=== PATIENT | female | born 1990 | race American Indian/Alaskan Native ===

== ENCOUNTER 2016-05-16 10:01 | Emergency (ER) | payer SELFPAY ==
--- NOTE | 2016-05-16 11:45 | Emergency Department Report ---
Chief Complaint: Abdominal Pain Stated Complaint: ABD PAIN/BLOOD IN STOOL Time Seen by Provider: 05/16/16 11:42 - HPI History of Present Illness: Patient here reported that she has lower abdominal pain on and off for 7 days. She is reporting that she had a loose and bloody stool to 348 hours which is now stopped. She says she is now constipated. She says she has not had a cycle for 9 days and if leg. Denies any vaginal bleeding or discharge. Denies any hemorrhoidal rectal pain. Denies any fever or chills or nausea vomiting today. Denies any urinary burning frequency or urgency. - ROS Review of Systems: All systems are negative unless stated in HPI above. - Exam Vital Signs: Vital Signs 05/16/16 10:58 Temperature 98 F Pulse Rate 85 Respiratory 18 Rate Blood Pressure 123/81 O2 Sat by Pulse 98 Oximetry Physical Exam: Gen: This is a 25-year-old female well-nourished well-developed nontoxic in appearance. CV: S1, S2. Regular rate and rhythm. Lungs:CTAB PSYCH:calm and relaxed GI: soft, NTTP in all quadrants. no gaurdinding or rebound tenderness. negative CVA tenderness. NL bowel sounds MSE screening note: Focused history and physical exam performed. Due to findings the following was ordered:see mdm ED Medical Decision Making - Medical Decision Making Medical decision making: Patient seen by provider in triage area. Appropriate protocol activated and patient to main ED to be seen by physician. ED Disposition for MSE Condition: Stable Instructions: Abdominal Pain (ED)
[2016-05-16 12:00] LABS: Basophils % (Auto) 0.4 % (0.0-1.8); Eosinophils % (Auto) 1.1 % (0.0-4.3); Hematocrit 40.9 % (30.3-42.9); Hemoglobin 13.3 gm/dl (10.1-14.3); Mean Corpuscular HGB Conc 33 % (30-34); Mean Corpuscular Hemoglobin 28 pg (28-32); Mean Corpuscular Volume 86 fl (79-97); Platelet Count 257 K/mm3 (140-440); Red Blood Count 4.77 M/mm3 (3.65-5.03); Red Cell Distribution Width 13.8 % (13.2-15.2)
[2016-05-16 12:23] LABS: Alanine Aminotransferase 15 units/L (7-56); Albumin/Globulin Ratio 1.2 %; Alkaline Phosphatase 54 units/L (35-129); Amylase 52 units/L (27-131); BUN/Creatinine Ratio 18.33; Bilirubin,Total < 0.2 mg/dL (0.1-1.2); Blood Urea Nitrogen 11 mg/dL (7-17); Calcium 8.6 mg/dL (8.4-10.2); Carbon Dioxide 27 mmol/L (22-30); Chloride 100.8 mmol/L (98-107); Glucose 87 mg/dL (65-100); Lipase 36 units/L (13-60); Sodium 138 mmol/L (137-145); Total Protein 7.3 g/dL (6.3-8.2)
[2016-05-16 12:24] LABS: Anion Gap 14 mmol/L
[2016-05-16 13:23] LABS: Bilirubin,Urine NEG (Negative); Blood,Urine NEG (Negative); Ketones,Urine NEG (Negative); Leukocyte Esterase,Urine TR (Negative); Mucus,Urine FEW /HPF; Nitrite,Urine NEG (Negative); Protein,Urine <15 mg/dL mg/dL (Negative); Urobilinogen,Urine < 2.0 mg/dL (<2.0)
--- NOTE | 2016-05-16 16:54 | Emergency Department Report ---
HPI - General Chief Complaint: Abdominal Pain Time Seen by Provider: 05/16/16 11:42 - HPI HPI: Room 37 The patient is a 25-year-old female presenting with a chief complaint of a bowel pain. The patient states for 1 week she has had intermittent lower abdominal pain across bilateral lower quadrants. The patient describes the pain as sharp and pressure-like in nature. Patient denies rectal pain but states for the past 2 days she's noticed blood in her stool. Patient admits to diarrhea. Patient states the diarrhea and hematochezia is resolved but she now feels constipated. Patient denies any history of fever, dysuria or hematuria. Patient also states her menstrual cycles approximately 9 days late Location: Lower abdomen Duration: One week Quality: Sharp and pressure-like Severity: Moderate Modifying factors: [see above] Context: [see above] Mode of transportation: Unknown ED Past Medical Hx - Past Medical History Previous Medical History?: No - Surgical History Past Surgical History?: No - Family History Family history: no significant - Social History Smoking Status: Current Some Day Smoker Substance Use Type: None (denies illicit drug use), Alcohol (occasional) - Medications Home Medications: Home Medications Medication Instructions Recorded Confirmed Last Taken Type Lactulose [Cephulac] 20 gm PO QDAY #90 ml 05/16/16 Unknown Rx traMADol [Ultram] 50 mg PO Q6HR PRN #10 tablet 05/16/16 Unknown Rx ED Review of Systems ROS: Stated complaint: ABD PAIN/BLOOD IN STOOL Other details as noted in HPI Comment: All other systems reviewed and negative Constitutional: denies: chills, fever Eyes: denies: eye pain, eye discharge, vision change ENT: denies: ear pain, throat pain Respiratory: denies: cough, shortness of breath, wheezing Cardiovascular: denies: chest pain, palpitations Endocrine: no symptoms reported Gastrointestinal: abdominal pain, hematochezia Genitourinary: denies: urgency, dysuria, discharge Musculoskeletal: denies: back pain, joint swelling, arthralgia Skin: denies: rash, lesions Neurological: denies: headache, weakness, paresthesias Psychiatric: denies: anxiety, depression Hematological/Lymphatic: denies: easy bleeding, easy bruising Physical Exam - Physical Exam Vital Signs: Vital Signs 05/16/16 10:58 Temperature 98 F Pulse Rate 85 Respiratory 18 Rate Blood Pressure 123/81 O2 Sat by Pulse 98 Oximetry Physical Exam: GENERAL: The patient is well-developed well-nourished female sitting on stretcher not appearing to be in acute distress. [] HEENT: Normocephalic. Atraumatic. Extraocular motions are intact. Patient has moist mucous membranes. NECK: Supple. Trachea midline CHEST/LUNGS: Clear to auscultation. There is no respiratory distress noted. HEART/CARDIOVASCULAR: Regular. There is no tachycardia. There is no gallop rub or murmur. ABDOMEN: Abdomen is soft, with mild discomfort to palpation in the right lower quadrant. There is no rebound or guarding. Patient has normal bowel sounds. There is no abdominal distention. SKIN: There is no rash. There is no edema. There is no diaphoresis. NEURO: The patient is awake, alert, and oriented. The patient is cooperative. The patient has normal speech MUSCULOSKELETAL: There is no evidence of acute injury. ED Course Vital Signs 05/16/16 10:58 Temperature 98 F Pulse Rate 85 Respiratory 18 Rate Blood Pressure 123/81 O2 Sat by Pulse 98 Oximetry ED Medical Decision Making - Lab Data Result diagrams: 05/16/16 11:51 05/16/16 11:51 Laboratory Tests 05/16/16 05/16/16 05/16/16 11:51 11:51 11:51 WBC 12.0 H RBC 4.77 Hgb 13.3 Hct 40.9 MCV 86 MCH 28 MCHC 33 RDW 13.8 Plt Count 257 Lymph % (Auto) 20.5 [place] % (Auto) 4.5 Eos % (Auto) 1.1 Baso % (Auto) 0.4 Lymph # 2.5 [place] # 0.5 Eos # 0.1 Baso # 0.1 Seg Neutrophils % 73.5 H Seg Neutrophils # 8.8 H Sodium 138 Potassium 4.0 Chloride 100.8 Carbon Dioxide 27 Anion Gap 14 BUN 11 Creatinine 0.6 L Estimated GFR > 60 BUN/Creatinine Ratio 18.33 Glucose 87 Calcium 8.6 Total Bilirubin < 0.2 AST 13 ALT 15 Alkaline Phosphatase 54 Total Protein 7.3 Albumin 4.0 Albumin/Globulin Ratio 1.2 Amylase 52 Lipase 36 HCG, Qual Negative Urine Color Urine Turbidity Urine pH Ur Specific [place] Urine Protein Urine Glucose (UA) Urine Ketones Urine Blood Urine Nitrite Urine Bilirubin Urine Urobilinogen Ur Leukocyte Esterase Urine WBC (Auto) Urine RBC (Auto) U Epithel Cells (Auto) Urine Mucus 05/16/16 13:02 WBC RBC Hgb Hct MCV MCH MCHC RDW Plt Count Lymph % (Auto) [place] % (Auto) Eos % (Auto) Baso % (Auto) Lymph # [place] # Eos # Baso # Seg Neutrophils % Seg Neutrophils # Sodium Potassium Chloride Carbon Dioxide Anion Gap BUN Creatinine Estimated GFR BUN/Creatinine Ratio Glucose Calcium Total Bilirubin AST ALT Alkaline Phosphatase Total Protein Albumin Albumin/Globulin Ratio Amylase Lipase HCG, Qual Urine Color Yellow Urine Turbidity Cloudy Urine pH 6.0 Ur Specific [place] 1.023 Urine Protein <15 mg/dl Urine Glucose (UA) 150 Urine Ketones Neg Urine Blood Neg Urine Nitrite Neg Urine Bilirubin Neg Urine Urobilinogen < 2.0 Ur Leukocyte Esterase Tr Urine WBC (Auto) 1.0 Urine RBC (Auto) 3.0 U Epithel Cells (Auto) 33.0 H Urine Mucus Few - Radiology Data Radiology results: report reviewed (CT abdomen and pelvis), image reviewed (CT abdomen and pelvis) CT abdomen and pelvis (read by radiologist)-there may be mild constipation in the rectum. No evidence of bulging structure seen. One is not well distended not well evaluated. 2.7 cm right ovarian cyst is seen - Differential Diagnosis colitis, Crohn's disease, appendicitis, ectopic Critical care attestation.: If time is entered above; I have spent that time in minutes in the direct care of this critically ill patient, excluding procedure time. ED Disposition Clinical Impression: Acute abdominal pain, Constipation Disposition: DISCHARGED TO HOME OR SELFCARE Is pt being admited?: No Does the pt Need Aspirin: No Condition: Stable Instructions: Abdominal Pain (ED), Rectal Bleeding (ED) Additional Instructions: Return to the emergency department immediately should you develop worsening symptoms, fever, inability to tolerate food or liquid or any other concerns. Prescriptions: Lactulose [Cephulac] 20 gm PO QDAY #90 ml traMADol [Ultram] 50 mg PO Q6HR PRN #10 tablet PRN Reason: Pain Referrals: PRIMARY CARE, [Primary Care Provider] - 3-5 Days JARRED BHAKTA MD [Staff Physician] - 3-5 Days (Dr. Bhakta is a dogger. Please follow up with him for further evaluation) Time of Disposition: 18:19
[2016-05-16] MEDS ORDERED: NACL ONE (17:05)
--- NOTE | 2016-05-16 17:58 | Cat Scan Report ---
FINAL REPORT PROCEDURE: CT ABDOMEN PELVIS W CON TECHNIQUE: Computerized axial tomography of the abdomen and pelvis was performed after the IV injection of iodinated nonionic contrast. HISTORY: lower abdominal pain, diarrhea, hematochezia COMPARISON: No prior studies are available for comparison. FINDINGS: Spleen and liver appear normal. Gallbladder is not well-distended but displays no abnormalities. Pancreas appears normal. Adrenal glands and abdominal aorta are normal in size. No renal abnormality is seen. Normal appendix is seen. 2.7 cm right ovarian cyst is seen with follicles in the left ovary. Trace free fluid is likely physiologic. Bladder appears normal. There may be mild constipation in the rectum. No evidence of bowel obstruction is seen. Stomach is moderately distended with food. Wall of the duodenum is not well visualized as it is not well-distended. Correlation with upper GI series may be useful if there is concern for duodenal abnormality. IMPRESSION: There may be mild constipation in the rectum. No evidence of bowel obstruction is seen. Duodenum is not well distended and not well evaluated. 2.7 cm right ovarian cyst is seen.
[2016-05-16 18:48] VITALS: BP 120/78
== END 2016-05-16 18:48 | disposition home or self-care (01) ==
LOC: ED 10:01
DX: R10.30 Lower abdominal pain, unspecified (principal); K59.00 Constipation, unspecified; F17.200 Nicotine dependence, unspecified, uncomplicated
CPT/HCPCS: 36415; 74177; 80053; 81001; 82150; 83690; 84703; 85025; 99284; Q9967

== ENCOUNTER 2017-07-15 13:17 | Emergency (ER) | payer SELFPAY ==
[2017-07-15 13:32] VITALS: BP 141/80
--- NOTE | 2017-07-15 14:15 | Emergency Department Report ---
ED Extremity Problem HPI - General Chief complaint: Extremity Injury, Lower Stated complaint: SWOLLEN FEET/ABDOMINAL CRAMPS Time Seen by Provider: 07/15/17 13:58 Source: patient Mode of arrival: Ambulatory Limitations: No Limitations - History of Present Illness Initial comments: Patient is a 26-year-old female who is complaining of swelling to her feet bilaterally. His normal for several days. Patient states that swelling is worsened throughout the day slightly better at night. Patient is triaged on her feet. Much all day with work. Patient states she has a numbness tingling sensation as well as some pain. Patient states since 6 out 10 in severity. Patient also is on her menses currently. Has some lower abdominal crampy pain. Patient has history of prediabetes and is worried that she may be if fully diabetic dialysis she's having this pain and swelling in her feet. - Related Data Previous Rx's Medication Instructions Recorded Last Taken Type Lactulose [Cephulac] 20 gm PO QDAY #90 ml 05/16/16 Unknown Rx Ibuprofen [Motrin] 600 mg PO Q8H PRN #15 tablet 07/15/17 Unknown Rx traMADol [Ultram 50 MG tab] 50 mg PO Q6HR PRN #10 tablet 07/15/17 Unknown Rx Allergies Allergy/AdvReac Type Severity Reaction Status Date / Time No Known Allergies Allergy Unverified 05/16/16 11:05 ED Review of Systems ROS: Stated complaint: SWOLLEN FEET/ABDOMINAL CRAMPS Other details as noted in HPI Comment: All other systems reviewed and negative ED Past Medical Hx - Past Medical History Previous Medical History?: No - Social History Smoking Status: Current Some Day Smoker Substance Use Type: None (denies illicit drug use), Alcohol (occasional) - Medications Home Medications: Home Medications Medication Instructions Recorded Confirmed Last Taken Type Lactulose [Cephulac] 20 gm PO QDAY #90 ml 05/16/16 Unknown Rx Ibuprofen [Motrin] 600 mg PO Q8H PRN #15 tablet 07/15/17 Unknown Rx traMADol [Ultram 50 MG tab] 50 mg PO Q6HR PRN #10 tablet 07/15/17 Unknown Rx ED Physical Exam - General Limitations: No Limitations General appearance: alert, in no apparent distress - Head Head exam: Present: atraumatic, normocephalic - Eye Eye exam: Present: normal appearance - ENT ENT exam: Present: mucous membranes moist - Neck Neck exam: Present: normal inspection - Respiratory Respiratory exam: Present: normal lung sounds bilaterally. Absent: respiratory distress - Cardiovascular Cardiovascular Exam: Present: regular rate, normal rhythm. Absent: systolic murmur, diastolic murmur, rubs, gallop - GI/Abdominal GI/Abdominal exam: Present: soft, normal bowel sounds - Extremities Exam Extremities exam: Present: normal inspection, full ROM, pedal edema - Back Exam Back exam: Present: normal inspection - Neurological Exam Neurological exam: Present: alert, oriented X3 - Psychiatric Psychiatric exam: Present: normal affect, normal mood - Skin Skin exam: Present: warm, dry, intact, normal color. Absent: rash ED Course Vital Signs 07/15/17 13:22 Temperature 98.2 F Pulse Rate 106 H Respiratory 16 Rate Blood Pressure 141/80 O2 Sat by Pulse 98 Oximetry ED Medical Decision Making - Medical Decision Making Patient's sugar was within normal limits. Patient most likely is not having a diabetic neuropathy. Patient has some very minor swelling near the ankles. This most likely dependent edema secondary to her job. Patient was given strategies to decrease the amount of swelling that she has such as a low-salt diet pressure stockings and elevation of her legs. She'll be discharged home at this time Critical care attestation.: If time is entered above; I have spent that time in minutes in the direct care of this critically ill patient, excluding procedure time. ED Disposition Clinical Impression: Dependent edema Disposition: DC-01 TO HOME OR SELFCARE Is pt being admited?: No Does the pt Need Aspirin: No Condition: Stable Instructions: Leg Edema (ED) Prescriptions: Ibuprofen [Motrin] 600 mg PO Q8H PRN #15 tablet PRN Reason: Pain traMADol [Ultram 50 MG tab] 50 mg PO Q6HR PRN #10 tablet PRN Reason: Pain Referrals: PRIMARY CARE,MD [Primary Care Provider] - 3-5 Days
== END 2017-07-15 14:22 | disposition home or self-care (01) ==
LOC: ED 13:17
DX: R60.9 Edema, unspecified (principal); F17.200 Nicotine dependence, unspecified, uncomplicated
CPT/HCPCS: 82962; 99282